=== PATIENT | female | born 1960 | race Caucasian/White ===

== ENCOUNTER 2021-10-25 08:43 | Inpatient (IN) ==
[2021-10-25] MEDS ORDERED: methylPREDNISolone SOD SUC 125 MG/2 ML VIAL IV STA (09:30)
[2021-10-25] MEDS ORDERED: ALBUTEROL NEB SOLN 5 MG/ML 20 ML/BOTTLE CONT NEB SCH (09:30)
[2021-10-25 09:56] LABS: Bilirubin,Total 0.6 MG/DL (0.20-1.00); Calcium 9.3 MG/DL (8.5-10.1); Potassium 3.9 MMOL/L (3.5-5.1); Total Protein 6.7 G/DL (6.4-8.2)
[2021-10-25 10:12] LABS: Basophils # 0.1 10*3/uL (0.0-0.2); Eosinophils # 1.4 10*3/uL (0.0-0.87); Eosinophils % 26.8 % (0.00-10.9); Hematocrit 32.5 VOL% (35.7-47.0); Hemoglobin 11.2 GM/DL (12.0-16.0); Immature Granulocytes % 0.4 %; Immature Granulocytes Absolute 0.02 #; Lymphocytes # 0.9 10*3/uL (1.4-4.0); Lymphocytes % 17.5 % (21.3-54.2); Mean Corpuscular HGB Conc 34.5 GM/DL (32-36); Mean Platelet Volume 10.8 FL (9.6-12.0); Monocytes # 0.3 10*3/uL (0.11-0.8); Monocytes % 6.6 % (1.7-12.7); Neutrophils % 47.7 % (38.7-73.9); Platelet Count 199 T/CUMM (130-400); Red Blood Count 3.65 MC/CUMM (3.8-5.5); Red Cell Distribution Width 13.9 % (9.3-17.3); White Blood Count 5.2 T/CUMM (4-12)
[2021-10-25] MEDS ORDERED: ACETAMINOPHEN 325 MG TABLET PO PRN (12:38)
[2021-10-25 12:46] LABS: Eosinophils 31 % (0-10); Lymphocytes 20 % (20-55); Ovalocytes Slight; Platelet Estimate Normal; Polychromasia Slight; Total Cells Counted 100
[2021-10-25] MEDS: ALBUTEROL/IPRATROPIUM 3 ML NEB RESP TX SCH ×3 (13:25→21:00)
[2021-10-25] MEDS: cefTRIAXone 1,000 MG in SODIUM CHLORIDE 0.9% 100 ML IV SCH (14:56)
[2021-10-25] MEDS: methylPREDNISolone SOD SUC 125 MG/2 ML VIAL IV SCH (17:53)
[2021-10-25] MEDS: DOCUSATE SODIUM 100 MG CAPSULE PO SCH (20:53)
[2021-10-26] MEDS: ALBUTEROL/IPRATROPIUM 3 ML NEB RESP TX SCH ×4 (00:50→19:42)
[2021-10-26] MEDS: methylPREDNISolone SOD SUC 125 MG/2 ML VIAL IV SCH ×3 (00:57→17:16)
[2021-10-26] MEDS: LEVOTHYROXINE 112 MCG TABLET PO SCH (05:52)
[2021-10-26] MEDS: DOCUSATE SODIUM 100 MG CAPSULE PO SCH ×2 (08:35→21:39)
[2021-10-26] MEDS: MONTELUKAST 10 MG TABLET PO SCH (08:35)
[2021-10-26] MEDS: PANTOPRAZOLE 40 MG TABLET PO SCH (08:35)
[2021-10-26] MEDS ORDERED: ALBUTEROL 2.5 MG/3 ML NEB RESP TX PRN (08:42)
[2021-10-26] MEDS ORDERED: PANTOPRAZOLE 40 MG TABLET PO SCH (09:00)
[2021-10-26] MEDS: AZILSARTAN MEDOXOMIL 40 MG PO SCH (10:59)
[2021-10-26] MEDS: BUDESONIDE/FORMOTEROL 160-4.5 INHALER 6 GM INH SCH ×2 (11:33→21:39)
[2021-10-26] MEDS: hydroCHLOROthiazide 12.5 MG CAPSULE PO SCH (11:33)
[2021-10-26] MEDS: ONDANSETRON 4 MG/2 ML VIAL IV PRN (13:55)
[2021-10-26] MEDS: cefTRIAXone 1,000 MG in SODIUM CHLORIDE 0.9% 100 ML IV SCH (13:55)
[2021-10-26] MEDS: BENZONATATE 100 MG CAPSULE PO SCH ×2 (17:16→21:38)
[2021-10-27] MEDS: methylPREDNISolone SOD SUC 125 MG/2 ML VIAL IV SCH ×3 (01:08→16:17)
[2021-10-27 05:29] LABS: Calcium 8.8 MG/DL (8.5-10.1); Osmolality,Calculated 285.5 MOS/KG (273-304); Potassium 4.4 MMOL/L (3.5-5.1)
[2021-10-27] MEDS: LEVOTHYROXINE 112 MCG TABLET PO SCH (05:34)
[2021-10-27] MEDS: ALBUTEROL/IPRATROPIUM 3 ML NEB RESP TX SCH ×4 (07:15→19:09)
[2021-10-27] MEDS: BUDESONIDE/FORMOTEROL 160-4.5 INHALER 6 GM INH SCH ×2 (09:36→20:20)
[2021-10-27] MEDS: MONTELUKAST 10 MG TABLET PO SCH (09:36)
[2021-10-27] MEDS: hydroCHLOROthiazide 12.5 MG CAPSULE PO SCH (09:36)
[2021-10-27] MEDS: DOCUSATE SODIUM 100 MG CAPSULE PO SCH ×2 (09:36→20:20)
[2021-10-27] MEDS: PANTOPRAZOLE 40 MG TABLET PO SCH (09:36)
[2021-10-27] MEDS: BENZONATATE 100 MG CAPSULE PO SCH ×3 (09:36→20:20)
[2021-10-27] MEDS: AZILSARTAN MEDOXOMIL 40 MG PO SCH (09:37)
[2021-10-27] MEDS: cefTRIAXone 1,000 MG in SODIUM CHLORIDE 0.9% 100 ML IV SCH (15:02)
[2021-10-28] MEDS: ALBUTEROL/IPRATROPIUM 3 ML NEB RESP TX SCH ×4 (00:26→19:35)
[2021-10-28] MEDS: methylPREDNISolone SOD SUC 125 MG/2 ML VIAL IV SCH ×3 (01:12→16:12)
[2021-10-28] MEDS: LEVOTHYROXINE 112 MCG TABLET PO SCH (05:47)
[2021-10-28 05:56] LABS: Hematocrit 33.6 VOL% (35.7-47.0); Hemoglobin 10.9 GM/DL (12.0-16.0); Immature Granulocytes % 1.4 %; Immature Granulocytes Absolute 0.11 #; Lymphocytes # 0.4 10*3/uL (1.4-4.0); Lymphocytes % 5.4 % (21.3-54.2); Mean Corpuscular HGB Conc 32.4 GM/DL (32-36); Mean Corpuscular Volume 93.6 FL (87-102); Mean Platelet Volume 10.6 FL (9.6-12.0); Monocytes # 0.2 10*3/uL (0.11-0.8); Monocytes % 2.9 % (1.7-12.7); Neutrophils % 90.3 % (38.7-73.9); Platelet Count 228 T/CUMM (130-400); Red Blood Count 3.59 MC/CUMM (3.8-5.5); Red Cell Distribution Width 13.8 % (9.3-17.3); White Blood Count 7.7 T/CUMM (4-12)
[2021-10-28 06:19] LABS: Calcium 9.6 MG/DL (8.5-10.1); Osmolality,Calculated 290.4 MOS/KG (273-304); Potassium 4.1 MMOL/L (3.5-5.1)
[2021-10-28] MEDS: PANTOPRAZOLE 40 MG TABLET PO SCH (09:16)
[2021-10-28] MEDS: hydroCHLOROthiazide 12.5 MG CAPSULE PO SCH (09:16)
[2021-10-28] MEDS: BENZONATATE 100 MG CAPSULE PO SCH ×3 (09:16→20:46)
[2021-10-28] MEDS: MONTELUKAST 10 MG TABLET PO SCH (09:16)
[2021-10-28] MEDS: BUDESONIDE/FORMOTEROL 160-4.5 INHALER 6 GM INH SCH ×2 (09:17→20:46)
[2021-10-28] MEDS: DOCUSATE SODIUM 100 MG CAPSULE PO SCH ×2 (09:17→20:46)
[2021-10-28] MEDS: AZILSARTAN MEDOXOMIL 40 MG PO SCH (09:17)
[2021-10-28] MEDS: cefTRIAXone 1,000 MG in SODIUM CHLORIDE 0.9% 100 ML IV SCH (14:29)
[2021-10-28] MEDS: BUDESONIDE 0.25 MG/2 ML NEB RESP TX SCH (19:35)
[2021-10-29] MEDS: methylPREDNISolone SOD SUC 125 MG/2 ML VIAL IV SCH ×3 (00:20→16:16)
[2021-10-29] MEDS: ALBUTEROL/IPRATROPIUM 3 ML NEB RESP TX SCH ×4 (00:35→19:11)
[2021-10-29] MEDS: ONDANSETRON 4 MG/2 ML VIAL IV PRN (04:52)
[2021-10-29] MEDS: LEVOTHYROXINE 112 MCG TABLET PO SCH (06:07)
[2021-10-29] MEDS: BUDESONIDE 0.25 MG/2 ML NEB RESP TX SCH ×2 (07:24→19:11)
[2021-10-29] MEDS: MONTELUKAST 10 MG TABLET PO SCH (09:31)
[2021-10-29] MEDS: BUDESONIDE/FORMOTEROL 160-4.5 INHALER 6 GM INH SCH ×2 (09:31→20:50)
[2021-10-29] MEDS: DOCUSATE SODIUM 100 MG CAPSULE PO SCH ×2 (09:31→20:49)
[2021-10-29] MEDS: BENZONATATE 100 MG CAPSULE PO SCH ×3 (09:31→20:49)
[2021-10-29] MEDS: AZILSARTAN MEDOXOMIL 40 MG PO SCH (09:31)
[2021-10-29] MEDS: PANTOPRAZOLE 40 MG TABLET PO SCH (09:31)
[2021-10-29] MEDS: hydroCHLOROthiazide 12.5 MG CAPSULE PO SCH (09:31)
[2021-10-29] MEDS: cefTRIAXone 1,000 MG in SODIUM CHLORIDE 0.9% 100 ML IV SCH (15:21)
[2021-10-30] MEDS: ALBUTEROL/IPRATROPIUM 3 ML NEB RESP TX SCH ×4 (00:02→19:57)
[2021-10-30] MEDS: methylPREDNISolone SOD SUC 125 MG/2 ML VIAL IV SCH ×3 (01:11→16:46)
[2021-10-30] MEDS: ONDANSETRON 4 MG/2 ML VIAL IV PRN (02:10)
[2021-10-30] MEDS ORDERED: ONDANSETRON 4 MG/2 ML VIAL IV ONE (05:45)
[2021-10-30] MEDS: LEVOTHYROXINE 112 MCG TABLET PO SCH (05:58)
[2021-10-30 06:18] LABS: Albumin 3.5 G/DL (3.4-5.0); Bilirubin,Total 0.4 MG/DL (0.20-1.00); Calcium 9.2 MG/DL (8.5-10.1); Osmolality,Calculated 289.3 MOS/KG (273-304); Potassium 4.1 MMOL/L (3.5-5.1); Total Protein 6.3 G/DL (6.4-8.2)
[2021-10-30] MEDS ORDERED: MIDAZOLAM 2 MG/2 ML VIAL ONE (07:19)
[2021-10-30 07:26] LABS: Basophils % 0.3 % (0.0-0.8); Hematocrit 32.1 VOL% (35.7-47.0); Hemoglobin 10.9 GM/DL (12.0-16.0); Immature Granulocytes % 4.9 %; Immature Granulocytes Absolute 0.32 #; Lymphocytes # 0.4 10*3/uL (1.4-4.0); Lymphocytes % 5.4 % (21.3-54.2); Mean Corpuscular Volume 90.9 FL (87-102); Mean Platelet Volume 10.9 FL (9.6-12.0); Monocytes # 0.3 10*3/uL (0.11-0.8); Monocytes % 5.1 % (1.7-12.7); Neutrophils % 84.3 % (38.7-73.9); Platelet Count 200 T/CUMM (130-400); Red Blood Count 3.53 MC/CUMM (3.8-5.5); Red Cell Distribution Width 13.3 % (9.3-17.3); White Blood Count 6.5 T/CUMM (4-12)
[2021-10-30] MEDS: BUDESONIDE 0.25 MG/2 ML NEB RESP TX SCH ×2 (07:30→19:57)
[2021-10-30] MEDS ORDERED: GLYCOPYRROLATE 0.4 MG/2 ML VIAL IM ONE (07:30)
[2021-10-30] MEDS ORDERED: MEPERIDINE 50 MG/1 ML VIAL IM ONE (07:30)
[2021-10-30] MEDS ORDERED: PROMETHAZINE 25 MG/1 ML VIAL IM ONE (07:30)
[2021-10-30] MEDS ORDERED: MIDAZOLAM 10 MG/2 ML VIAL IV ONE (08:00)
[2021-10-30] MEDS ORDERED: LIDOCAINE 1% 20 ML VIAL MISC INJ ONE (08:00)
[2021-10-30] MEDS ORDERED: LIDOCAINE 2% VISCOUS 100 ML BOTTLE SWISH/SPIT ONE (08:00)
[2021-10-30] MEDS ORDERED: LIDOCAINE 2% 20 ML VIAL RESP TX ONE (08:00)
[2021-10-30] MEDS: MONTELUKAST 10 MG TABLET PO SCH (10:25)
[2021-10-30] MEDS: BENZONATATE 100 MG CAPSULE PO SCH ×3 (10:25→21:24)
[2021-10-30] MEDS: PANTOPRAZOLE 40 MG TABLET PO SCH (10:25)
[2021-10-30] MEDS: AZILSARTAN MEDOXOMIL 40 MG PO SCH (10:26)
[2021-10-30] MEDS: hydroCHLOROthiazide 12.5 MG CAPSULE PO SCH (10:26)
[2021-10-30] MEDS: DOCUSATE SODIUM 100 MG CAPSULE PO SCH ×2 (10:26→21:24)
[2021-10-30] MEDS: BUDESONIDE/FORMOTEROL 160-4.5 INHALER 6 GM INH SCH ×2 (10:27→21:25)
[2021-10-30] MEDS: cefTRIAXone 1,000 MG in SODIUM CHLORIDE 0.9% 100 ML IV SCH (14:16)
[2021-10-31] MEDS: ALBUTEROL/IPRATROPIUM 3 ML NEB RESP TX SCH ×4 (00:40→21:35)
[2021-10-31] MEDS: methylPREDNISolone SOD SUC 125 MG/2 ML VIAL IV SCH ×2 (02:18→08:49)
[2021-10-31] MEDS: ONDANSETRON 4 MG/2 ML VIAL IV PRN (02:21)
[2021-10-31] MEDS: LEVOTHYROXINE 112 MCG TABLET PO SCH (05:47)
[2021-10-31] MEDS: BUDESONIDE 0.25 MG/2 ML NEB RESP TX SCH ×2 (08:01→21:35)
[2021-10-31] MEDS: DOCUSATE SODIUM 100 MG CAPSULE PO SCH ×2 (08:49→20:49)
[2021-10-31] MEDS: MONTELUKAST 10 MG TABLET PO SCH (08:49)
[2021-10-31] MEDS: hydroCHLOROthiazide 12.5 MG CAPSULE PO SCH (08:49)
[2021-10-31] MEDS: BENZONATATE 100 MG CAPSULE PO SCH ×3 (08:49→20:49)
[2021-10-31] MEDS: PANTOPRAZOLE 40 MG TABLET PO SCH (08:49)
[2021-10-31] MEDS: BUDESONIDE/FORMOTEROL 160-4.5 INHALER 6 GM INH SCH ×2 (08:50→20:51)
[2021-10-31] MEDS: methylPREDNISolone SOD SUC 40 MG/1 ML VIAL IV SCH ×2 (14:38→22:07)
[2021-10-31] MEDS: cefTRIAXone 1,000 MG in SODIUM CHLORIDE 0.9% 100 ML IV SCH (14:38)
[2021-10-31] MEDS: AZILSARTAN MEDOXOMIL 40 MG PO SCH (15:07)
[2021-11-01] MEDS: LEVOTHYROXINE 112 MCG TABLET PO SCH (06:03)
[2021-11-01] MEDS: methylPREDNISolone SOD SUC 40 MG/1 ML VIAL IV SCH ×3 (06:06→21:01)
[2021-11-01] MEDS: BUDESONIDE 0.25 MG/2 ML NEB RESP TX SCH ×2 (07:17→20:02)
[2021-11-01] MEDS: ALBUTEROL/IPRATROPIUM 3 ML NEB RESP TX SCH ×4 (07:17→20:02)
[2021-11-01] MEDS: BUDESONIDE/FORMOTEROL 160-4.5 INHALER 6 GM INH SCH ×2 (08:55→21:02)
[2021-11-01] MEDS: AZILSARTAN MEDOXOMIL 40 MG PO SCH (08:55)
[2021-11-01] MEDS: PANTOPRAZOLE 40 MG TABLET PO SCH (08:55)
[2021-11-01] MEDS: BENZONATATE 100 MG CAPSULE PO SCH ×3 (08:55→21:00)
[2021-11-01] MEDS: MONTELUKAST 10 MG TABLET PO SCH (08:55)
[2021-11-01] MEDS: DOCUSATE SODIUM 100 MG CAPSULE PO SCH ×2 (08:55→21:00)
[2021-11-01] MEDS: hydroCHLOROthiazide 12.5 MG CAPSULE PO SCH (08:55)
[2021-11-01] MEDS: cefTRIAXone 1,000 MG in SODIUM CHLORIDE 0.9% 100 ML IV SCH (15:00)
[2021-11-02] MEDS: ALBUTEROL/IPRATROPIUM 3 ML NEB RESP TX SCH ×2 (00:19→07:44)
[2021-11-02] MEDS: LEVOTHYROXINE 112 MCG TABLET PO SCH (06:09)
[2021-11-02] MEDS: methylPREDNISolone SOD SUC 40 MG/1 ML VIAL IV SCH (06:13)
[2021-11-02 06:16] LABS: Basophils % 0.1 % (0.0-0.8); Hematocrit 37.1 VOL% (35.7-47.0); Hemoglobin 12.6 GM/DL (12.0-16.0); Immature Granulocytes % 3.3 %; Immature Granulocytes Absolute 0.29 #; Lymphocytes # 0.5 10*3/uL (1.4-4.0); Lymphocytes % 5.3 % (21.3-54.2); Mean Corpuscular Volume 89.8 FL (87-102); Monocytes # 0.8 10*3/uL (0.11-0.8); Monocytes % 8.6 % (1.7-12.7); Neutrophils % 82.7 % (38.7-73.9); Platelet Count 183 T/CUMM (130-400); Red Blood Count 4.13 MC/CUMM (3.8-5.5); Red Cell Distribution Width 13.2 % (9.3-17.3); White Blood Count 8.8 T/CUMM (4-12)
[2021-11-02 06:33] LABS: Calcium 9.4 MG/DL (8.5-10.1); Osmolality,Calculated 286.7 MOS/KG (273-304); Potassium 3.9 MMOL/L (3.5-5.1)
[2021-11-02] MEDS: AZILSARTAN MEDOXOMIL 40 MG PO SCH (08:11)
[2021-11-02] MEDS: BENZONATATE 100 MG CAPSULE PO SCH (08:11)
[2021-11-02] MEDS: DOCUSATE SODIUM 100 MG CAPSULE PO SCH (08:11)
[2021-11-02] MEDS: hydroCHLOROthiazide 12.5 MG CAPSULE PO SCH (08:12)
[2021-11-02] MEDS: PANTOPRAZOLE 40 MG TABLET PO SCH (08:12)
[2021-11-02] MEDS: BUDESONIDE/FORMOTEROL 160-4.5 INHALER 6 GM INH SCH (08:14)
[2021-11-02] MEDS: MONTELUKAST 10 MG TABLET PO SCH (08:14)
[2021-11-02 12:37] VITALS: BP 160/87
== END 2021-11-02 13:56 | disposition home or self-care (01) | DRG 191 ==
LOC: N.EDINP 08:43 → N.ED 08:43 → N.2W 15:24 → N.3E 16:32
PROVIDERS: ADMIT Family Medicine; ATTEND Family Medicine

== ENCOUNTER 2021-11-09 10:03 | Observation (INO) ==
[2021-11-09] MEDS ORDERED: MAGNESIUM SULF RIDER 2 GM/50 ML PREMIX IV PRN (11:05)
[2021-11-09] MEDS ORDERED: POTASSIUM CHLORIDE RIDER 10 MEQ/100 ML PREMIX IV PRN (11:05)
[2021-11-09] MEDS ORDERED: POTASSIUM CHLORIDE 20 MEQ TABLET PO PRN (11:05)
[2021-11-09] MEDS ORDERED: ACETAMINOPHEN 325 MG TABLET PO PRN (11:05)
[2021-11-09] MEDS ORDERED: ONDANSETRON 4 MG/2 ML VIAL IV PRN (11:05)
[2021-11-09] MEDS ORDERED: MAGNESIUM SULF RIDER 4 GM/100 ML PREMIX IV PRN (11:05)
[2021-11-09] MEDS ORDERED: SODIUM CHLORIDE 0.9% 1,000 ML IV ONE (11:09)
[2021-11-09] MEDS ORDERED: ALBUTEROL/IPRATROPIUM 3 ML NEB RESP TX PRN (11:09)
[2021-11-09] MEDS ORDERED: ALBUTEROL 2.5 MG/3 ML NEB RESP TX PRN (11:29)
[2021-11-09 11:32] LABS: Basophils % 0.3 % (0.0-0.8); Eosinophils # 0.2 10*3/uL (0.0-0.87); Eosinophils % 3.1 % (0.00-10.9); Hemoglobin 13.1 GM/DL (12.0-16.0); Immature Granulocytes % 0.4 %; Immature Granulocytes Absolute 0.03 #; Lymphocytes # 0.9 10*3/uL (1.4-4.0); Lymphocytes % 13.4 % (21.3-54.2); Mean Corpuscular HGB Conc 33.6 GM/DL (32-36); Mean Corpuscular Volume 88.8 FL (87-102); Mean Platelet Volume 10.6 FL (9.6-12.0); Monocytes # 0.7 10*3/uL (0.11-0.8); Monocytes % 9.5 % (1.7-12.7); Neutrophils % 73.3 % (38.7-73.9); Platelet Count 160 T/CUMM (130-400); Red Blood Count 4.39 MC/CUMM (3.8-5.5); Red Cell Distribution Width 13.2 % (9.3-17.3)
[2021-11-09 11:52] LABS: Albumin 3.7 G/DL (3.4-5.0); Bilirubin,Total 0.9 MG/DL (0.20-1.00); Calcium 8.7 MG/DL (8.5-10.1); Potassium 3.5 MMOL/L (3.5-5.1); Total Protein 6.7 G/DL (6.4-8.2)
[2021-11-09 13:02] LABS: Bilirubin,Urine Negative (Negative); Blood, Urine Negative (Negative); Glucose,Urine (UA) Negative (Negative); Ketones,Urine Negative (Negative); Nitrite,Urine Negative (Negative); Protein,Urine Negative (Negative); Urine Appearance Clear (Clear); Urine Color Yellow (Yellow); Urine Specific Gravity >= 1.030 (1.001-1.035); Urine Urobilinogen 0.2 eU/dL (<2.0)
[2021-11-09 13:04] LABS: Hyaline Casts,Urine 1 /LPF (0-3); Mucus,Urine Occasional /LPF (Occasional); RBC,Urine 1 /HPF (0-4); Squamous Epithelial Cell,Urine Occasional /HPF (0-10)
[2021-11-09] MEDS: BUDESONIDE/FORMOTEROL 160-4.5 INHALER 6 GM INH SCH ×2 (15:09→21:44)
[2021-11-09] MEDS: LEVOTHYROXINE 112 MCG TABLET PO SCH (15:10)
[2021-11-09] MEDS: PANTOPRAZOLE 40 MG TABLET PO SCH (15:10)
[2021-11-09] MEDS: SODIUM CHLORIDE 0.9% 1,000 ML IV SCH ×2 (15:11→20:41)
[2021-11-09] MEDS ORDERED: SIMVASTATIN 20 MG TABLET PO SCH (21:00)
[2021-11-10] MEDS: SODIUM CHLORIDE 0.9% 1,000 ML IV SCH (03:12)
[2021-11-10 05:29] LABS: Basophils % 0.3 % (0.0-0.8); Eosinophils # 0.1 10*3/uL (0.0-0.87); Eosinophils % 4.5 % (0.00-10.9); Hematocrit 30.4 VOL% (35.7-47.0); Hemoglobin 10.1 GM/DL (12.0-16.0); Immature Granulocytes % 0.3 %; Immature Granulocytes Absolute 0.01 #; Lymphocytes # 0.8 10*3/uL (1.4-4.0); Lymphocytes % 24.9 % (21.3-54.2); Mean Corpuscular HGB Conc 33.2 GM/DL (32-36); Mean Corpuscular Volume 91.3 FL (87-102); Mean Platelet Volume 11.1 FL (9.6-12.0); Monocytes # 0.4 10*3/uL (0.11-0.8); Monocytes % 11.3 % (1.7-12.7); Neutrophils % 58.7 % (38.7-73.9); Platelet Count 101 T/CUMM (130-400); Red Blood Count 3.33 MC/CUMM (3.8-5.5); Red Cell Distribution Width 12.9 % (9.3-17.3); White Blood Count 3.1 T/CUMM (4-12)
[2021-11-10 05:49] LABS: Albumin 3.2 G/DL (3.4-5.0); Bilirubin,Total 0.6 MG/DL (0.20-1.00); Calcium 8.3 MG/DL (8.5-10.1); Osmolality,Calculated 277.4 MOS/KG (273-304); Potassium 3.8 MMOL/L (3.5-5.1); Total Protein 5.2 G/DL (6.4-8.2)
[2021-11-10] MEDS: PANTOPRAZOLE 40 MG TABLET PO SCH ×2 (05:54→09:15)
[2021-11-10] MEDS: LEVOTHYROXINE 112 MCG TABLET PO SCH (05:55)
[2021-11-10] MEDS: BUDESONIDE/FORMOTEROL 160-4.5 INHALER 6 GM INH SCH (09:15)
[2021-11-10 09:19] VITALS: BP 126/92
== END 2021-11-10 12:00 | disposition home or self-care (01) ==
LOC: N.2W
PROVIDERS: ADMIT Family Medicine; ATTEND Family Medicine